=== PATIENT | male | born 1990 | race Caucasian/White ===

== ENCOUNTER → 2021-01-20 | Outpatient (CLI) | payer BC ==
--- NOTE | 2021-01-20 15:45 | RAD ---
CLINICAL HISTORY: Reason: TESTICULAR PAIN RIGHT / COMPARISON: None available. TECHNIQUE: Ultrasound images of the scrotum was performed with galindo-scale and color doppler. FINDINGS: The right testis measures 5.1 x 3.1 x 2.5 cm. The left testis measures 5.2 x 3.3 x 2.6 cm. There is no intratesticular abnormality. Testicular vascularity is symmetric and within normal limit s with arterial and venous waveforms seen. The epididymis is normal in appearance bilaterally. There is no hydrocele or varicocele. IMPRESSION: Unremarkable exam. Electronically signed by: Duane Blanca MD (01/20/2021 3:43 PM) [id number]
== END ==
LOC: US 09:37
PROVIDERS: ATTEND Nurse Practitioner Family
DX: N50.811 Right testicular pain (principal)
CPT/HCPCS: 76870